=== PATIENT | male | born 1955 | race American Indian/Alaskan Native ===

== ENCOUNTER 2020-06-23 11:54 | Emergency (ER) | payer OTHER ==
--- NOTE | 2020-06-23 12:26 | Event Note ---
ED Screening Note Date of service: 06/23/20 Time: 12:25 ED Screening Note: 65-year-old male with a past medical history of end-stage renal disease currently on hemodialysis Tuesday and Tuesday presents to the ER via EMS with complaints of generalized weakness and fatigue since his last dialysis last week Tuesday. Patient states that he did not make it to dialysis today because of his symptoms and he also felt anxious and panicky today. This initial assessment/diagnostic orders/clinical plan/treatment(s) is/are subject to change based on patients health status, clinical progression and re- assessment by fellow clinical providers in the ED. Further treatment and workup at subsequent clinical providers discretion. Patient/guardian urged not to elope from the ED as their condition may be serious if not clinically assessed and managed. Initial orders include: CBC, CMP, EKG and troponin
[2020-06-23 13:00] LABS: Basophils % (Auto) 0.6 % (0.0-1.8); Eosinophils % (Auto) 0.2 % (0.0-4.3); Hematocrit 27.6 % (35.5-45.6); Hemoglobin 9.2 gm/dl (11.8-15.2); Lymphocytes # (Auto) 0.7 K/mm3 (1.2-5.4); Lymphocytes % (Auto) 8.9 % (13.4-35.0); Mean Corpuscular HGB Conc 33 % (32-34); Mean Corpuscular Volume 87 fl (84-94); Monocytes # (Auto) 0.7 K/mm3 (0.0-0.8); Platelet Count 438 K/mm3 (140-440); Red Blood Count 3.18 M/mm3 (3.65-5.03); Red Cell Distribution Width 18.8 % (13.2-15.2)
[2020-06-23 13:18] LABS: Albumin 3.2 g/dL (3.9-5); Calcium 8.2 mg/dL (8.4-10.2)
[2020-06-23 13:31] LABS: Chol/HDL Ratio 4.05 %
--- NOTE | 2020-06-23 17:12 | Emergency Department Report ---
ED General Adult HPI - General Chief complaint: Weakness Stated complaint: WEAKNESS Time Seen by Provider: 06/23/20 12:23 Source: patient Mode of arrival: Wheelchair Limitations: No Limitations - History of Present Illness Initial comments: The patient presents to the emergency department with a chief complaint of generalized weakness. Patient stated that on Tuesday went to dialysis the head is normal dialysis treatment and felt significantly fatigued and weak after his treatment. He denies any chest pain, shortness breath, or abdominal pain after the treatment. Patient states today upon arriving the dialysis explained to them about symptoms for the last 3 days and they told to come to the emergency department for evaluation. Patient denies chest pain, shortness breath, or abdominal pain peer -: Sudden, days(s) (3) Severity scale (0 -10): 0 Consistency: constant Improves with: none Worsens with: none Associated Symptoms: denies other symptoms Treatments Prior to Arrival: none - Related Data Home Medications Medication Instructions Recorded Confirmed Last Taken Aspirin 325 mg PO DAILY 04/13/13 04/13/13 04/12/13 1 Insulin Detemir [Levemir Flexpen] 100 units .ROUTE 5XD 04/13/13 04/13/13 04/12/13 1 Simvastatin 40 mg PO DAILY 04/13/13 04/13/13 04/12/13 1 lisinopriL [Lisinopril] 40 mg PO DAILY 04/13/13 04/13/13 04/12/13 1 Allergies Allergy/AdvReac Type Severity Reaction Status Date / Time No Known Allergies Allergy Unverified 04/13/13 09:42 ED Review of Systems ROS: Stated complaint: WEAKNESS Other details as noted in HPI Constitutional: denies: chills, fever Eyes: denies: eye pain, eye discharge, vision change ENT: denies: ear pain, throat pain Respiratory: denies: cough, shortness of breath, wheezing Cardiovascular: denies: chest pain, palpitations Endocrine: no symptoms reported Gastrointestinal: denies: abdominal pain, nausea, diarrhea Genitourinary: denies: urgency, dysuria Musculoskeletal: denies: back pain, joint swelling, arthralgia Skin: denies: rash, lesions Neurological: weakness. denies: headache, paresthesias Psychiatric: denies: anxiety, depression Hematological/Lymphatic: denies: easy bleeding, easy bruising ED Past Medical Hx - Past Medical History Previous Medical History?: Yes Hx Hypertension: Yes Hx Diabetes: Yes Hx Renal Disease: Yes Additional medical history: HIGH CHOLESTEROL - Social History Smoking Status: Never Smoker Substance Use Type: None - Medications Home Medications: Home Medications Medication Instructions Recorded Confirmed Last Taken Type Aspirin 325 mg PO DAILY 04/13/13 04/13/13 04/12/13 History 1 Insulin Detemir [Levemir Flexpen] 100 units .ROUTE 5XD 04/13/13 04/13/13 04/12/13 History 1 Simvastatin 40 mg PO DAILY 04/13/13 04/13/13 04/12/13 History 1 lisinopriL [Lisinopril] 40 mg PO DAILY 04/13/13 04/13/13 04/12/13 History 1 ED Physical Exam - General Limitations: No Limitations General appearance: alert, in no apparent distress - Head Head exam: Present: atraumatic, normocephalic - Eye Eye exam: Present: normal appearance, PERRL, EOMI - ENT ENT exam: Present: mucous membranes moist - Neck Neck exam: Present: normal inspection - Respiratory Respiratory exam: Present: normal lung sounds bilaterally. Absent: respiratory distress - Cardiovascular Cardiovascular Exam: Present: regular rate, normal rhythm. Absent: systolic murmur, diastolic murmur, rubs, gallop - GI/Abdominal GI/Abdominal exam: Present: soft, normal bowel sounds. Absent: distended, tenderness - Rectal Rectal exam: Present: deferred - Extremities Exam Extremities exam: Present: normal inspection - Back Exam Back exam: Present: normal inspection - Neurological Exam Neurological exam: Present: alert, oriented X3, CN II-XII intact. Absent: motor sensory deficit - Psychiatric Psychiatric exam: Present: normal affect, normal mood - Skin Skin exam: Present: warm, dry, intact, normal color. Absent: rash ED Course Vital Signs 06/23/20 06/23/20 06/23/20 12:22 15:08 15:25 Temperature 98.1 F Pulse Rate 93 H 96 H Respiratory 20 20 18 Rate Blood Pressure 136/53 Blood Pressure 106/69 [Right] O2 Sat by Pulse 94 95 Oximetry 06/23/20 06/23/20 16:47 17:32 Temperature Pulse Rate 96 H 93 H Respiratory 18 18 Rate Blood Pressure Blood Pressure 139/66 112/83 [Right] O2 Sat by Pulse 96 97 Oximetry ED Medical Decision Making - Lab Data Result diagrams: 06/23/20 12:42 06/23/20 12:42 Lab Results 06/23/20 06/23/20 06/23/20 Range/Units 12:42 12:42 16:45 WBC 8.0 (4.5-11.0) K/mm3 RBC 3.18 L (3.65-5.03) M/mm3 Hgb 9.2 L (11.8-15.2) gm/dl Hct 27.6 L (35.5-45.6) % MCV 87 (84-94) fl MCH 29 (28-32) pg MCHC 33 (32-34) % RDW 18.8 H (13.2-15.2) % Plt Count 438 (140-440) K/mm3 Lymph % (Auto) 8.9 L (13.4-35.0) % [place] % (Auto) 9.0 H (0.0-7.3) % Eos % (Auto) 0.2 (0.0-4.3) % Baso % (Auto) 0.6 (0.0-1.8) % Lymph # (Auto) 0.7 L (1.2-5.4) K/mm3 [place] # (Auto) 0.7 (0.0-0.8) K/mm3 Eos # (Auto) 0.0 (0.0-0.4) K/mm3 Baso # (Auto) 0.0 (0.0-0.1) K/mm3 Seg Neutrophils % 81.3 H (40.0-70.0) % Seg Neutrophils # 6.5 (1.8-7.7) K/mm3 Sodium 138 (137-145) mmol/L Potassium 4.0 (3.6-5.0) mmol/L Chloride 95.4 L (98-107) mmol/L Carbon Dioxide 28 (22-30) mmol/L Anion Gap 19 mmol/L BUN 44 H (9-20) mg/dL Creatinine 7.8 H (0.8-1.3) mg/dL Estimated GFR 8 ml/min BUN/Creatinine Ratio 6 % Glucose 229 H (75-100) mg/dL Calcium 8.2 L (8.4-10.2) mg/dL Total Bilirubin 0.20 (0.1-1.2) mg/dL AST 9 (5-40) units/L ALT 8 (7-56) units/L Alkaline Phosphatase 107 (35-129) units/L Troponin T 0.035 H 0.033 H (0.00-0.029) ng/mL Total Protein 7.7 (6.3-8.2) g/dL Albumin 3.2 L (3.9-5) g/dL Albumin/Globulin Ratio 0.7 % Triglycerides 120 (2-149) mg/dL Cholesterol 77 (50-199) mg/dL LDL Cholesterol Direct 29 L (50-130) mg/dL HDL Cholesterol 19 L (40-59) mg/dL Cholesterol/HDL Ratio 4.05 % - EKG Data -: EKG Interpreted by Me EKG shows normal: sinus rhythm Rate: normal - EKG Data Interpretation: [facility] - Radiology Data Radiology results: report reviewed - Medical Decision Making Elevated troponins likely secondary to the patient's renal condition Patient states that he will call his dialysis center tomorrow to get dialysis scheduled for Tuesday which is tomorrow Discussed results with patient Critical care attestation.: If time is entered above; I have spent that time in minutes in the direct care of this critically ill patient, excluding procedure time. ED Disposition Clinical Impression: Fatigue, Weakness Disposition: DC-01 TO HOME OR SELFCARE Is pt being admited?: No Does the pt Need Aspirin: No Condition: Stable Instructions: Fatigue Additional Instructions: return if worse Referrals: GRABIEL WILSON MD [Staff Physician] - 3-5 Days Time of Disposition: 17:48
[2020-06-23 18:15] VITALS: BP 136/64
== END 2020-06-23 18:16 | disposition home or self-care (01) ==
LOC: ED 11:54
DX: R53.83 Other fatigue (principal); R53.1 Weakness; I10 Essential (primary) hypertension; E11.9 Type 2 diabetes mellitus without complications; E78.00 Pure hypercholesterolemia, unspecified; Z79.899 Other long term (current) drug therapy
CPT/HCPCS: 36415; 80053; 80061; 84484; 85025; 93005